=== PATIENT | male | born 2000 | race Caucasian/White ===

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

== ENCOUNTER 2021-09-14 11:32 | Emergency (ER) | payer BC ==
[~2021-09-14] VITALS: Ht 180.3 cm; Wt 68.0 kg
[~2021-09-14 11:32] MED LIST: ONDA4TAB11 PO
== END 2021-09-14 12:54 | disposition home or self-care (01) ==
LOC: ER 11:32
DX: R06.02 Shortness of breath (principal); F17.210 Nicotine dependence, cigarettes, uncomplicated; Z91.012 Allergy to eggs; Z91.018 Allergy to other foods; Z79.899 Other long term (current) drug therapy
CPT/HCPCS: 71045; 93005; A4663

== ENCOUNTER 2021-11-26 00:26 | Emergency (ER) | payer BC ==
[~2021-11-26] VITALS: Ht 180.3 cm; Wt 70.3 kg
[2021-11-26 02:39] VITALS: BP 128/60
== END 2021-11-26 02:40 | disposition home or self-care (01) ==
LOC: ER 00:30
DX: R07.89 Other chest pain (principal); R00.1 Bradycardia, unspecified; F17.200 Nicotine dependence, unspecified, uncomplicated; Z91.012 Allergy to eggs; Z91.018 Allergy to other foods
CPT/HCPCS: 71045; A4663

== ENCOUNTER 2023-04-11 21:34 | Emergency (ER) | payer BC, MEDICAID ==
[~2023-04-11] VITALS: Ht 180.3 cm; Wt 72.6 kg
[2023-04-11 23:59] VITALS: BP 120/66; TEMP 97.5; O2SAT 98
== END 2023-04-12 | disposition home or self-care (01) ==
LOC: ER 21:37
DX: S22.32XA Fracture of one rib, left side, initial encounter for closed fracture (principal); S20.212A Contusion of left front wall of thorax, initial encounter; F17.210 Nicotine dependence, cigarettes, uncomplicated; Z91.012 Allergy to eggs; Z91.018 Allergy to other foods; Z79.899 Other long term (current) drug therapy; Z20.822 Contact with and (suspected) exposure to COVID-19; V29.99XA Rider (driver) (passenger) of other motorcycle injured in unspecified traffic accident, initial encounter; Y93.89 Activity, other specified; Y92.89 Other specified places as the place of occurrence of the external cause; Y99.8 Other external cause status
CPT/HCPCS: 71250; A4606; A4663

== ENCOUNTER 2024-02-01 18:27 | Emergency (ER) | payer MEDICAID ==
[~2024-02-01] VITALS: Ht 180.3 cm; Wt 72.6 kg
[2024-02-01 22:33] VITALS: BP 110/72; TEMP 98; O2SAT 99
== END 2024-02-01 22:34 | disposition home or self-care (01) ==
LOC: ER 18:28
DX: R10.31 Right lower quadrant pain (principal); F17.200 Nicotine dependence, unspecified, uncomplicated; Z88.7 Allergy status to serum and vaccine
CPT/HCPCS: A4606; A4663